=== PATIENT | female | born 1985 | race Caucasian/White ===

== ENCOUNTER 2021-12-12 10:04 | Inpatient (IN) | payer BC ==
[2021-12-02 21:00] VITALS: BP 126/76; PULSE 52; TEMP 97.7
[~2021-12-12] VITALS: Ht 175.3 cm; Wt 75.0 kg
[2021-12-13] VITALS (36 sets, daily range): BP systolic 107–148; BP diastolic 60–87; PULSE 56–96; TEMP 96.4–98.7
--- NOTE | 2021-12-13 06:30 | NUR ---
pt ambulatory to lr5. changed into clean gown. FHR monitor/TOCO applied. Pt denies any vaginal bleeding, leaking of fluid, decreased movement, or regular contractions. plan of care discussed. pt verbalizes understanding.
[2021-12-13] MEDS ORDERED: EUTHYROX25 MCG PO (06:49)
[2021-12-13] MEDS ORDERED: PRENATAL TABLET PO (06:50)
--- NOTE | 2021-12-13 07:57 | NUR ---
MATERNAL HR TRACING
[2021-12-13 08:07] LABS: BASO % 0.4 % (0.0-2.0); EOS % 0.6 % (0.0-4.0); GRAN # 5.2 K/mm3 (1.4-6.5); GRAN % 73.9 % (42.2-75.2); HEMATOCRIT 37.7 % (37.0-47.0); HEMOGLOBIN 13.4 g/dl (12.5-16.0); LYMPH # 1.3 K/mm3 (1.2-3.4); LYMPH % 17.8 % (20.0-51.0); MEAN CELL VOLUME 97 fl (80.0-100.0); MEAN CORPUSCULAR HEMOGLOBIN 34 pg (27-31); MEAN CORPUSCULAR HGB CONC 36 g/dl (33.0-37.0); MEAN PLATELET VOLUME 10.3 fl (7.4-10.4); MONO # 0.5 K/mm3 (0.1-0.6); MONO % 6.9 % (1.7-9.3); PLATELET COUNT 167 K/mm3 (130-400); REDCELL DISTRIBUTION WIDTH-CV 12.2 % (11.5-14.5)
--- NOTE | 2021-12-13 11:30 | NUR ---
[id number] PT ON WIRELESS MONITOR WALKING UNIT
--- NOTE | 2021-12-13 12:03 | NUR ---
MATERNAL HR TRACING
--- NOTE | 2021-12-13 12:22 | NUR ---
[id number] INTERMITTENTLY TRACING MATERNAL HR
--- NOTE | 2021-12-13 13:55 | NUR ---
[id number] PT ON WIRELESS FHR MONITOR.
--- NOTE | 2021-12-13 17:10 | NUR ---
1520-NOW FHR MONITOR INTERMITTENLY PICKING UP MATERNAL HR DUE TO PT LEANING OVER BED OR SQUAT BAR.
--- NOTE | 2021-12-13 18:20 | NUR ---
REPORT GIVEN TO Carlos MORE RN BY THIS RN
--- NOTE | 2021-12-13 18:30 | NUR ---
1826: DR. PARRA AT PT BEDSIDE. SVE COMPLETE/100%. POC DISCUSSED WITH PT AND PTS SPOUSE. PT AND PT SPOUSE VERBALIZED UNDERSTANDING AND AGREEMENT. 182: PT GAVE A TEST PUSH WITH DR. PARRA AT BEDSIDE. DR. PARRA LEAVES BEDSIDE TO PREPARE FOR . 182: DR. PARRA AT BEDSIDE. PROMPTING PT TO PUSH WITH CTX. FHR SIGNAL INTERMITTENT WITH AUDIBLE TONES THROUGHOUT THE ROOM. THIS RN REMAINS AT BEDSIDE, PALPATING ABDOMEN AND ATTEMPTING TO READJUST FHR MONITOR.
--- NOTE | 2021-12-13 18:47 | NUR ---
OF VIABLE BABY GIRL AT 1847. BABY TO MOTHERS ABD. CORD CLAMPED BY DOCTOR AND CUT BY FOB. BABY CARE ASSUMED BY NURSERY RN NURY FONTENOT. SPONTANEOUS DELIVERY OF INTACT PLACENTA AT 1849. PP PITOCIN STARTED AT 333 ML/HR PER PROTOCOL. DR. PARRA BEGINS REPAIR OF SECOND DEGREE LACERATION. RECOVERY TIME STARTED AT 1900.
--- NOTE | 2021-12-13 19:00 | NUR ---
OF VIABLE BABY GIRL AT 1847. BABY TO MOTHERS ABD. CORD CLAMPED BY DOCTOR AND CUT BY FOB. BABY CARE ASSUMED BY NURSERY RN NURY FONTENOT. SPONTANEOUS DELIVERY OF INTACT PLACENTA AT 1849. PP PITOCIN STARTED AT 333 ML/HR PER PROTOCOL. DOCTOR BEGINS REPAIR OF SECOND DEGREE LACERATION. 1900: RECOVERY TIME STARTED.
--- NOTE | 2021-12-13 21:15 | NUR ---
2109: INT REMOVAL, TIP INTACT, SITE FREE OF REDNESS AND INFLAMMATION, PT TOLERATED REMOVAL. 2113: EPIDURAL CATHETER REMOVED, BLUE TIP INTACT, SITE FREE OF REDNESS AND INFLAMMATION, PT TOLERATED REMOVAL.
--- NOTE | 2021-12-13 22:00 | NUR ---
PT UP AND OUT OF BED, AMBULATING WITH A STEADY GAIT TO ROOM 216 ACCOMPANIED BY SPOUSE WITH BELONGINGS IN TOW. PT ORIENTED TO ROOM, CHANGED INTO NEW GOWN, PERICARE PROVIDED, AND ABNORMAL BLEEDING EDUCATION PROVIDED. PT AND PT SPOUSE DENIED QUESTIONS, CONCERNS, AND NEEDS AT THIS TIME.
[2021-12-14] VITALS: BP 110/63; PULSE 71; TEMP 99
[2021-12-14 05:40] VITALS: BP 114/92; PULSE 65; TEMP 97.5
[2021-12-14 07:20] VITALS: BP 108/70; PULSE 62; TEMP 97.6
[2021-12-14] MEDS ORDERED: MOTRIN 800800 MG/TAB PO (08:31)
[2021-12-14 11:35] VITALS: BP 109/76; PULSE 79; TEMP 97.5
--- NOTE | 2021-12-14 12:01 | NUR ---
REPORT GIVEN TO Obi CERVANTES
[2021-12-14 15:05] VITALS: BP 106/83; PULSE 64; TEMP 98.3
[2021-12-15 07:58] VITALS: BP 102/64; PULSE 63; TEMP 97.8
== END 2021-12-15 14:30 | disposition home or self-care (01) | DRG 807 ==
LOC: OB 10:04 → LDR 12-13 06:23 → OB 12-13 06:23
PROVIDERS: ADMIT Obstetrics & Gynecology
PROC: 10E0XZZ Delivery of Products of Conception, External Approach (ICD-10-PCS; principal; 2021-12-13)
PROC: 0KQM0ZZ Repair Perineum Muscle, Open Approach (ICD-10-PCS; 2021-12-13)
PROC: 3E033VJ Introduction of Other Hormone into Peripheral Vein, Percutaneous Approach (ICD-10-PCS; 2021-12-13)
DX: O99.284 Endocrine, nutritional and metabolic diseases complicating childbirth (principal); Z37.0 Single live birth; Z3A.39 39 weeks gestation of pregnancy; O70.1 Second degree perineal laceration during delivery; E03.9 Hypothyroidism, unspecified; Z86.16 Personal history of COVID-19; Z23 Encounter for immunization
CPT/HCPCS: J2400; J2590; J7120

== ENCOUNTER 2023-11-07 14:40 | Inpatient (IN) | payer BC ==
[~2023-11-07] VITALS: Ht 180.3 cm; Wt 80.5 kg
[2023-11-07] VITALS (10 sets, daily range): BP systolic 98–140; BP diastolic 58–89; PULSE 63–82; TEMP 98.1
[~2023-11-07 14:40] MED LIST: EUTHYROX25 MCG PO; MOTRIN 800800 MG/TAB PO; PRENATAL TABLET PO
--- NOTE | 2023-11-07 14:48 | NUR ---
PT AMBULATORY TO UNIT WITH SPOUSE, REPORTS NO LOF, NO VAGINAL BLEEDING OTHER THAN "BLOODY SHOW", CTX Q5-10 MIN, POSITIVE MOVEMENT. SVE PER CAILIN JARA, /-1. EFM CAT 1. VS STABLE. PT COMFORTABLE WITH POC.
[2023-11-07] MEDS ORDERED: LR 1,000 ML IV SCH (15:15)
[2023-11-07] MEDS ORDERED: Penicillin G Potassium 5,000,000 UNITS in NS 100 ML IV ONE (15:15)
[2023-11-07] MEDS ORDERED: FIBERCON (15:22)
[2023-11-07 15:23] LABS: BASO % 0.2 % (0.0-2.0); EOS % 0.4 % (0.0-4.0); GRAN # 7.5 K/mm3 (1.4-6.5); GRAN % 79.2 % (42.2-75.2); HEMATOCRIT 42.1 % (37.0-47.0); HEMOGLOBIN 15.2 g/dl (12.5-16.0); LYMPH # 1.2 K/mm3 (1.2-3.4); MEAN CELL VOLUME 98 fl (80.0-100.0); MEAN CORPUSCULAR HEMOGLOBIN 35 pg (27-31); MEAN CORPUSCULAR HGB CONC 36 g/dl (33.0-37.0); MEAN PLATELET VOLUME 9.4 fl (7.4-10.4); MONO # 0.6 K/mm3 (0.1-0.6); MONO % 6.4 % (1.7-9.3); PLATELET COUNT 170 K/mm3 (130-400); REDCELL DISTRIBUTION WIDTH-CV 12.3 % (11.5-14.5)
--- NOTE | 2023-11-07 17:49 | NUR ---
1729 PT REQUEST AROM AT THIS TIME. AROM COMPLETE, SMALL AMOUNT MECONIUM FLUID NOTED, SVE 10/100/0. ROOM SET FOR DELIVERY, NSY AND CHARGE NOTIFIED. 1749 OF VIABLE FEMALE INFANT PER . INFANT PLACED ON MATERNAL ABDOMEN, CARE ASSUMED BY CAILIN LU. APGARS 8,9,9. [address] EVERETT. LOCHIA WNL, FUNDUS FIRM AT U, REPAIRED 2ND DEGREE LACERATION. PITOCIN BOLUS INFUSING PER PROTOCOL, VS STABLE. ROOM PPUT BACK TOGETHER, PT COMFORTABLE.
[2023-11-07] MEDS ORDERED: LR & Oxytocin 500 ML IV SCH (18:00)
[2023-11-07] MEDS ORDERED: Phenylephrine/Mineral Oil/Petrolatum 57 GM TUBE RC PRN (18:15)
[2023-11-07] MEDS ORDERED: Loratadine 10 MG TAB PO PRN (18:15)
[2023-11-07] MEDS ORDERED: Measles/Mumps/Rubella Virus Vaccine Live w Diluent 0.5 ML VIAL SQ SCH (18:15)
[2023-11-07] MEDS ORDERED: Witch Hazel 50% Pads Bulk TUB TP PRN (18:15)
[2023-11-07] MEDS ORDERED: Magnes Hydrox (MOM) 80 MG/ML 30 ML CUP PO PRN (18:15)
[2023-11-07] MEDS ORDERED: oxyCODONE 5 MG TAB PO PRN (18:15)
[2023-11-07] MEDS ORDERED: Mag/Al Hydrox/Simeth Susp 30 ML CUP PO PRN (18:15)
[2023-11-07] MEDS ORDERED: Naloxone 0.4 MG/ML VIAL IV PRN (18:15)
[2023-11-07] MEDS ORDERED: Acetaminophen 500 MG TAB PO SCH (18:15)
[2023-11-07] MEDS ORDERED: Ibuprofen 800 MG TAB PO SCH (18:15)
[2023-11-07] MEDS ORDERED: Penicillin G Potassium 2,500,000 UNITS in NS 100 ML IV SCH (19:04)
--- NOTE | 2023-11-07 20:00 | NUR ---
1999-PT ASSISTED UP TO THE BATHROOM. AMBULATED WITHOUT DIFFICULTY. PERICARE AND INSTRUCTION GIVEN. TUCKS AND ICE TO PERINEUM FOR COMFORT. PT THEN AMBULATED TO HER ROOM WITHOUT DIFFICULTY.
[2023-11-07] MEDS ORDERED: traZODone 50 MG TAB PO PRN (21:00)
[2023-11-08 00:32] VITALS: BP 101/72; PULSE 55; TEMP 98.5
[2023-11-08 04:30] VITALS: BP 99/59; PULSE 65; TEMP 98.2
[2023-11-08 06:45] VITALS: BP 104/62; PULSE 65; TEMP 97.9
[2023-11-08] MEDS ORDERED: Sennosides/Docusate 8.6-50 MG TAB PO SCH (08:00)
[2023-11-08] MEDS ORDERED: Prenatal Vitamins/Iron/FA TAB PO SCH (09:00)
--- NOTE | 2023-11-08 10:02 | NUR ---
Initial visit; Parents thanked Key Sander for offering congratulations and God's blessings for the of their daughter. Key Sander thanked family for choosing [facility]. They replied that they have had a good experience here.
[2023-11-08] MEDS ORDERED: Influenza Virus Vaccine, Trivalent '24-25 0.5 ML SYRINGE IM SCH (11:00)
[2023-11-08 11:30] VITALS: BP 106/87; PULSE 70; TEMP 97.8
[2023-11-08 15:30] VITALS: BP 114/49; PULSE 57; TEMP 98.1
[2023-11-08 19:10] VITALS: BP 113/67; PULSE 55; TEMP 97.3
[2023-11-09 08:00] VITALS: BP 106/63; PULSE 66; TEMP 97.7
[2023-11-09] MEDS ORDERED: Acetaminophen 500 MG TAB PO SCH (09:30)
[2023-11-09] MEDS ORDERED: Ibuprofen 800 MG TAB PO SCH (11:30)
[2023-11-09] MEDS ORDERED: Influenza Virus Vaccine, Trivalent '24-25 0.5 ML ONCE TODAY IM ONE (11:45)
[2023-11-09] MEDS ORDERED: Influenza Virus Vaccine, Trivalent '24-25 0.5 ML SYRINGE IM SCH (15:45)
== END 2023-11-09 17:10 | disposition home or self-care (01) | DRG 560 ==
LOC: OB 14:40 → LDR 14:40 → OB 21:05
PROVIDERS: Obstetrics & Gynecology; ADMIT Obstetrics & Gynecology
PROC: 10E0XZZ Delivery of Products of Conception, External Approach (ICD-10-PCS; principal; 2023-11-07)
PROC: 0KQM0ZZ Repair Perineum Muscle, Open Approach (ICD-10-PCS; 2023-11-07)
DX: O48.0 Post-term pregnancy (principal); Z37.0 Single live birth; O70.1 Second degree perineal laceration during delivery; O99.824 Streptococcus B carrier state complicating childbirth; O77.0 Labor and delivery complicated by meconium in amniotic fluid; O99.284 Endocrine, nutritional and metabolic diseases complicating childbirth; E03.9 Hypothyroidism, unspecified; Z3A.40 40 weeks gestation of pregnancy
CPT/HCPCS: J2540; J2590; J7120